=== PATIENT | male | born 1995 | race Caucasian/White ===

== ENCOUNTER 2017-05-02 00:37 | Emergency (ER) | payer BC ==
[~2017-05-02] VITALS: Ht 185.4 cm; Wt 113.4 kg
[~2017-05-02 00:37] MED LIST: NO MEDS
--- NOTE | 2017-05-02 00:53 | ER Report ---
History and Physical Time Seen By MD: 00:53 Hx. of Stated Complaint: PATIENT FELL ON THE ICE AROUND 2350, HE GOT HOME, TOOK 600MG OF IBUPROFEN, ICED AND ELEVATED, BUT HE JUST KEPT SWEELING IN BOTH ANKLES, SO DECIDE TO COME GET IT CHECKED OUT. PATIENT DENIES ANY N/T. GOOD CAP REFIL. HPI/ROS CHIEF COMPLAINT: ankle injury HISTORY OF PRESENT ILLNESS: This is a 21 year old male. He slipped on the ice when it gave way beneath his right foot. Between the curb and street. Ankle rolled both ways prior to catching himself. He has swelling and pain. Some radiation up his leg. He took a pain pill prior to coming in. Having swelling. Able to bear weight but with pain. No numbness or tingling and can move foot and toes. Allergies: Coded Allergies: codeine (Verified Allergy, Mild, HYPERACTIVITY, 05/02/17) Home Meds Discontinued Reported Medications [No Meds] No Conflict Check 05/16/14 Reviewed Nurses Notes: Yes Hx Smoking: No Smoking Status: Never Smoker Constitutional Vital Sign - Last 24 Hours 05/02/17 05/02/17 00:46 02:25 Pulse 81 82 Resp 16 16 B/P (MAP) 133/81 132/84 (100) Pulse Ox 95 92 O2 Delivery Room Air Room Air Physical Exam General appearance: Patient is alert. No acute distress. Musculoskeletal: Right ankle shows some lateral swelling. There is no obvious deformity. No bruising. Medial malleolus is non-tender. Lateral malleolus has some tenderness. Head of the fifth metatarsal is nontender. No tenderness with squeeze of the lower leg or foot. Weight bearing: Weight bearing not tested due to pain. Neurologic: The patient has normal sensation distal to the injury. Active range of motion is intact, but with pain. Cardiovascular: Normal dorsalis pedis and posterior tibialis pulses. Normal capillary refill. Skin: No rash. No skin breakdown. DIFFERENTIAL DIAGNOSIS: After history and physical exam differential diagnosis was considered for ankle injury including sprain, fracture, dislocation and soft tissue injury. Medical Decision Making EKG/Imaging Imaging INDICATION: Right ankle injury with pain, mostly lateral. EXAM DATE: 05/02/2017 12:57 AM COMPARISON: None. FINDINGS: 3 views right ankle. Mineralization is normal. No acute alignment abnormality or fracture. Os trigonum noted. Prominent lateral soft tissue swelling. IMPRESSION: Lateral soft tissue swelling with no acute osseous abnormality of the right ankle. Report Dictated By: Josef Hall MD at 05/02/2017 1:37 AM ED Course/Re-evaluation ED Course Discussed conservative measures and results of imaging. Decision to Disposition Date: May 02, 2017 Decision to Disposition Time: 02:10 Depart Departure Latest Vital Signs Vital Signs Date Time Temp Pulse Resp B/P (MAP) Pulse Ox O2 Delivery O2 Flow Rate FiO2 05/02/17 02:25 82 16 132/84 (100) 92 Room Air Impression: Primary Impression: Ankle sprain Condition: Improved Disposition: HOME OR SELF-CARE New Scripts No Active Prescriptions or Reported Meds Patient Instructions: Ankle Sprain (ED) Additional Instructions: Ibuprofen 200mg over the counter tablets, take 4 tablets three times a day with food. Apply ice 20 minutes every 1-2 hours while awake. An HARSHAD wrap can be used for compression to help reduce swelling. Rest the injured area, keep it elevated while at rest. Begin gentle range of motion exercises. Advance weight bearing as tolerated. Problem Qualifiers Primary Impression: Ankle sprain Encounter type: initial encounter Involved ligament of ankle: unspecified ligament Laterality: right Qualified Codes: S93.401A - Sprain of unspecified ligament of right ankle, initial encounter RICCARDO STEPHENS MD May 02, 2017 00:53
--- NOTE | 2017-05-02 01:42 | RADIOLOGY IMAGING REPORT ---
[place] [facility] [place] NAME: Jovany Agustin : 1995 MR: [id number] V: [id number] EXAM DATE: ORDERING PHYSICIAN: RICCARDO STEPHENS TECHNOLOGIST: Location: [facility] Patient: Jovany Agustin : 1995 Visit/Account:[id number] Date of Sevice: 05/02/2017 INDICATION: Right ankle injury with pain, mostly lateral. EXAM DATE: 05/02/2017 12:57 AM COMPARISON: None. FINDINGS: 3 views right ankle. Mineralization is normal. No acute alignment abnormality or fracture. Os trigon um noted. Prominent lateral soft tissue swelling. IMPRESSION: Lateral soft tissue swelling with no acute osseous abnormality of the right ankle. Report Dictated By: Josef Hall MD at 05/02/2017 1:37 AM Report E-Signed By: Josef Hall MD at 05/02/2017 1:39 AM WSN:[id number]
[2017-05-02 02:25] VITALS: BP 132/84
== END 2017-05-02 02:30 | disposition home or self-care (01) ==
LOC: ER 00:45
DX: S93.401A Sprain of unspecified ligament of right ankle, initial encounter (principal); W00.2XXA Other fall from one level to another due to ice and snow, initial encounter; Y92.480 Sidewalk as the place of occurrence of the external cause; Y99.8 Other external cause status
CPT/HCPCS: 99283